=== PATIENT | male | born 1955 | race Caucasian/White ===

== ENCOUNTER 2017-02-10 20:17 | Emergency (ER) | payer SELFPAY ==
[~2017-02-10] VITALS: Ht 175.3 cm; Wt 78.0 kg
[~2017-02-10 20:17] MED LIST: ASPI81CH CHEW; ATEN50TA PO; INDO25CA PO; LOVA20TA PO
[2017-02-10 20:24] VITALS: BP 205/113; PULSE 61; RESP 16; TEMP 98.3; O2SAT 97
[2017-02-10 20:37] VITALS: BP 172/83; PULSE 56
--- NOTE | 2017-02-10 20:39 | PD ---
HPI Chief Complaint: Abdominal Pain Time Seen by Provider: 20:39 Travel History International Travel<30 days: No Contact w/Intl Traveler<30days: No Traveled to known affect area: No History of Present Illness HPI 61-year-old male came to the emergency room with history of incarcerated hernia. Patient says that he was having abdominal pain that started yesterday and was colicky nature with sharp intensity. No nausea or vomiting. It seemed to have subsided last night but this morning when he woke up it started coming back again. This was in the periumbilical area. Patient went to the [facility] emergency room where he was evaluated. The ER physician felt a ventral hernia that he tried to reduce. CAT scan was done which showed an incarcerated hernia. Patient was transferred here after the ER physician spoke with the general surgeon emergency response technician Dr. Hayden. Patient says his pain is completely gone at this point. He feels very comfortable. He says he is aware of his ventral hernia which usually comes and goes and he is able to reduce it. For past 1-2 weeks he had a bad bout of bronchitis where he was coughing and hacking a lot. He was given antibiotic and finally got better. After that the hernias issue started. Vital signs are stable. Patient looks comfortable. His was there with him. [facility] Past Medical History Narrative Medical List of his past medical, surgical, social and family history as reviewed from the nursing note. Cancer: Yes (testicular,Right lung CA) Cardiovascular Problems: Yes (HTN) High Cholesterol: Yes Diminished Hearing: No Hypertension: Yes Immunizations Current: Yes Tetanus Vaccination: Unknown Influenza Vaccination: Yes Past Surgical History Abdominal Surgery: Yes (abd lymphnode dissection) Tonsillectomy: Yes Other Surgery: Yes (left testicle removed) Social History Alcohol Use: Yes (occasional) Tobacco Use: No Substance Use: No Allergies-Medications (Allergen,Severity, Reaction): Coded Allergies: No Known Allergies (Unverified , 02/10/17) Comments No known drug allergies. Reported Meds & Prescriptions Reported Meds & Active Scripts Active Miralax Powder (Polyethylene Glycol 3350 Powder) 17 Gm Powd 17 Gm PO DAILY Mix and dissolve one measuring cap-ful (17 grams) in water or juice. Reported Indomethacin 25 Mg Cap 25 Mg PO TID Take with food, milk, or antacids to decrease stomach adverse effects. Aspirin 81 Mg Chew 81 Mg CHEW DAILY Lovastatin 20 Mg Tab 20 Mg PO DAILY Atenolol 50 Mg Tab 50 Mg PO BID Narrative Medication List of his home medications reviewed from the nursing note. Review of Systems Except as stated in HPI: all other systems reviewed are Neg Physical Exam Narrative GENERAL: Awake, alert, no obvious distress SKIN: Focused skin assessment warm/dry. HEAD: Atraumatic. Normocephalic. EYES: Pupils equal and round. No scleral icterus. No injection or drainage. ENT: No nasal bleeding or discharge. Mucous membranes pink and moist. NECK: Trachea midline. No JVD. CARDIOVASCULAR: Regular rate and rhythm. No murmur appreciated. RESPIRATORY: No accessory muscle use. Clear to auscultation. Breath sounds equal bilaterally. GASTROINTESTINAL: Abdomen soft, non-tender, nondistended. Hepatic and splenic margins not palpable. Defect in the rectus muscle which constitutes the hernia superior to the umbilicus. The edges of the ring could be palpated which is about 3 cm x 3 cm gap. No bowel loops felt. MUSCULOSKELETAL: No obvious deformities. No clubbing. No cyanosis. No edema. NEUROLOGICAL: Awake and alert. No obvious cranial nerve deficits. Motor grossly within normal limits. Normal speech. PSYCHIATRIC: Appropriate mood and affect; insight and judgment normal. Data Data Last Documented VS [facility] Medical Decision Making Medical Screen Exam Complete: Yes Emergency Medical Condition: Yes Medical Record Reviewed: Yes Differential Diagnosis Reduced ventral hernia Narrative Course 8:57 PM I discussed the case with Dr. Hayden and let him know that the hernia is completely reduced at this point. He agreed that the patient can go home. He'll follow-up with the patient in his office next week. I'll discuss all this with the patient and let him know. He'll be discharged home. Procedures EKG Prior to Arrival: No Diagnosis Primary Impression: Ventral hernia Referrals: Jasper Hayden MD 3 days Additional Instructions: Please call the general surgeon whose name and number been provided to you and the discharge paper. Try to see him next week in his office to talk about the fixation of the hernia. Take the laxative prescribed to you as per the directions. Try not to strain your bowels either by coughing, straining while moving or sneezing. Try to wear an abdominal binder of possible. Return to the ER if the condition worsens or any other new concerns. Med/Other Pt SpecificInfo: Prescription(s) given Scripts Polyethylene Glycol 3350 Powder (Miralax Powder) 17 Gm Powd 17 GM PO DAILY for Constipation, #1 CAN 0 Refills Mix and dissolve one measuring cap-ful (17 grams) in water or juice. Prov: Ba Friend MD 02/10/17 Disposition: 01 DISCHARGE HOME Condition: Stable Ba Friend MD Feb 10, 2017 20:39
[2017-02-10] MEDS ORDERED: MIRA3350 PO (20:59)
== END 2017-02-10 21:30 | disposition home or self-care (01) ==
LOC: NEPE 20:17
DX: K43.9 Ventral hernia without obstruction or gangrene (principal); I10 Essential (primary) hypertension; E78.00 Pure hypercholesterolemia, unspecified
CPT/HCPCS: 74177; 80053; 81001; 83690; 85025; 85610; 85730; 96361; 96374; 96375; 99285; J2270; J2405; J7030; Q9967; 99281